=== PATIENT | male | born 1960 | race Caucasian/White ===

== ENCOUNTER → 2023-04-01 11:48 | Outpatient (REF) | payer OTHER, SELFPAY ==
[2023-04-01 13:30] LABS: % Basophils 0.5 % (0-2); % Eosinophils 4.3 % (0-6); % Immature Granulocytes 0.3 % (0-0.5); % Lymphocytes 15.3 % (20.5-51.1); % Monocytes 8.2 % (1.7-9.3); % Neutrophils 71.4 % (42.2-75.2); Absolute Eosinophils 0.4 10^3/uL (0-0.7); Absolute Lymphocytes 1.3 10^3/uL (1.2-3.4); Absolute Monocytes 0.7 10^3/uL (0.1-0.6); Absolute Neutrophils 6.2 10^3/uL (1.4-6.5); Hematocrit 39.9 % (39.0-52.0); Mean Corp Hgb Conc. 35.1 g/dL (33.0-37.0); Mean Corpuscular Hgb 31.7 pg (27.0-31.0); Mean Corpuscular Volume 90.5 fL (80.0-94.0); Mean Platelet Volume 10.7 fL (7.4-10.4); Nucleated Red Blood Cells % 0 % (-); Platelet Count 325 10^3/uL (130-400); Red Blood Cell Count 4.41 10^6/uL (4.70-6.10); Red Cell Dist. Width 12.1 % (11.5-14.5); White Blood Cell Count 8.7 10^3/uL (4.8-10.8)
[2023-04-01 14:10] LABS: Erythrocyte Sed Rate 31 mm/hour (0-20)
[2023-04-01 16:46] LABS: Lyme Antibody Screen, EIA Negative (Negative)
== END ==
LOC: REG 11:48
PROVIDERS: ATTENDING PHYSICIAN Physician Assistant Surgical
DX: M25.471 Effusion, right ankle (principal)
CPT/HCPCS: 36415; 85025; 85652; 86140; 86618; 89060